=== PATIENT | female | born 1955 | race Caucasian/White ===

== ENCOUNTER 2021-03-24 14:44 | Outpatient (CLI) | payer MEDICARE, OTHER ==
[2021-03-25 11:18] LABS: SARS-CoV-2 PCR by NAA Not Detected (NotDetected)
== END 2021-03-24 14:45 | disposition home or self-care (01) ==
LOC: LABBT 14:44
PROVIDERS: ATTEND Ophthalmology Retina Specialist
DX: Z01.812 Encounter for preprocedural laboratory examination (principal); Z20.822 Contact with and (suspected) exposure to COVID-19
CPT/HCPCS: U0003; U0005

== ENCOUNTER 2021-03-26 05:58 | Day surgery (SDC) | payer MEDICARE, OTHER ==
[2021-03-26] MEDS ORDERED: EPINEPHrine 0.3 MG in Ophthalmic Irrigation Solution 500 ML IRR SCH (06:00)
[2021-03-26] MEDS ORDERED: Phenylephrine 2.5% Ophth Soln 5 ML BOT ONE (06:03)
[2021-03-26] MEDS ORDERED: Cyclopentolate 1% Opth Drop 2 ML BOT ONE (06:03)
[2021-03-26] MEDS ORDERED: Midazolam HCl 2 mg/2 ml Vial ONE (06:22)
[2021-03-26] MEDS ORDERED: PROPOFOL 20 ML ONE (06:22)
[2021-03-26] MEDS ORDERED: Fentanyl 100 MCG/2 ML VIAL ONE (06:22)
[2021-03-26] MEDS ORDERED: CEFAZOLIN 1 GM VIAL ONE (07:08)
[2021-03-26] MEDS ORDERED: Maxitrol 0.1% Opth Oint 3.5 GM TUBE ONE (07:08)
[2021-03-26] MEDS ORDERED: Triamcinolone 40 MG/ML VIAL ONE (07:08)
[2021-03-26] MEDS ORDERED: Lidocaine 1% PF 5 ML VIAL ONE (07:08)
[2021-03-26] MEDS ORDERED: Bupivacaine PF 0.75% SDV 10 ML ONE (07:08)
[2021-03-26] MEDS ORDERED: Lidocaine 4% PF 5 ML AMP ONE (07:08)
== END 2021-03-26 06:35 | disposition home or self-care (01) ==
LOC: SDC 05:58
PROVIDERS: ATTEND Ophthalmology Retina Specialist
PROC: 08T53ZZ Resection of Left Vitreous, Percutaneous Approach (ICD-10-PCS; principal; 2021-03-26)
PROC: 08NF3ZZ Release Left Retina, Percutaneous Approach (ICD-10-PCS; 2021-03-26)
DX: H43.312 Vitreous membranes and strands, left eye (principal); Z79.84 Long term (current) use of oral hypoglycemic drugs; Z79.899 Other long term (current) drug therapy
CPT/HCPCS: J0171; J0690; J2250; J2704; J3010; J3301; J3490

== ENCOUNTER 2021-06-16 08:08 | Day surgery (SDC) | payer MEDICARE, OTHER ==
[2021-06-16] MEDS ORDERED: diphenhydrAMINE 25 MG CAP PO SCH (09:00)
[2021-06-16] MEDS ORDERED: Acetaminophen 500 MG TAB PO SCH (09:00)
[2021-06-16 11:43] VITALS: BP 146/61; TEMP 98.2
== END 2021-06-16 11:49 | disposition home or self-care (01) ==
LOC: ONC/OP 08:08
PROVIDERS: ATTEND Internal Medicine Hematology & Oncology
PROC: 30233N1 Transfusion of Nonautologous Red Blood Cells into Peripheral Vein, Percutaneous Approach (ICD-10-PCS; principal; 2021-06-16)
DX: D64.9 Anemia, unspecified (principal); D69.6 Thrombocytopenia, unspecified; Z88.2 Allergy status to sulfonamides; Z88.7 Allergy status to serum and vaccine
CPT/HCPCS: 36430; 86850; 86900; 86901; P9016

== ENCOUNTER 2021-06-18 09:15 | Outpatient (CLI) | payer MEDICARE, OTHER ==
[2021-06-18 11:19] LABS: Hemoglobin 8.4 g/dL (12.0-15.5); Mean Corpuscular HGB CONC 28.8 g/dL (32.0-36.0); Platelet Count 372 10x3/uL (150-450); RBC Distribution Width 19.9 % (11.5-14.5)
[2021-06-18 11:47] LABS: Anion Gap 14 mmol/L (10-20); BUN (Urea Nitrogen) 17 mg/dL (9.8-20.1); Calc. Creatinine Clearance 0 mL/min (70-130); Calcium 8.5 mg/dL (7.8-10.44); Carbon Dioxide 26 mmol/L (23-31); Chloride 106 mmol/L (98-107); Glucose 111 mg/dL (80-115); Potassium 3.8 mmol/L (3.5-5.1); Sodium 142 mmol/L (136-145)
[2021-06-18 18:16] LABS: SARS-CoV-2 PCR by NAA Not Detected (NotDetected)
== END 2021-06-18 09:16 | disposition home or self-care (01) ==
LOC: LABBT 09:15
PROVIDERS: ATTEND Surgery
DX: Z01.818 Encounter for other preprocedural examination (principal); Z20.822 Contact with and (suspected) exposure to COVID-19
CPT/HCPCS: 80048; 85027; U0003; U0005

== ENCOUNTER 2021-06-18 09:30 | Inpatient (IN) | payer MEDICARE, OTHER ==
[2021-06-22] MEDS ORDERED: cefOXitin Sodium/Dextrose 2 GM/50 ML BAG ONE (09:27)
[2021-06-22] MEDS ORDERED: Scopolamine 1.5 mg/72 hour Patch ONE (13:44)
[2021-06-22] MEDS ORDERED: Midazolam HCl 2 mg/2 ml Vial ONE (13:44)
[2021-06-22] MEDS ORDERED: Lidocaine 1% w/Epinephrine 1:100K 20 ML VIAL ONE (13:54)
[2021-06-22] MEDS ORDERED: Bupivacaine 0.25% 10 ML VIAL ONE (13:54)
[2021-06-22] MEDS ORDERED: Fentanyl 100 MCG/2 ML VIAL ONE ×3 (14:01→20:49)
[2021-06-22] MEDS ORDERED: Promethazine HCl 25 MG/ML VIAL IM PRN (14:10)
[2021-06-22] MEDS ORDERED: Glycopyrrolate 0.2 MG/ML 5 ML SYRINGE ONE (14:10)
[2021-06-22] MEDS ORDERED: hydrALAZINE 20 MG/ML VIAL SLOW IVP PRN (14:10)
[2021-06-22] MEDS ORDERED: Ondansetron PF 4 MG/2 ML Vial IVP PRN (14:10)
[2021-06-22] MEDS ORDERED: Phenylephrine 10 MG/ML VIAL ONE (14:10)
[2021-06-22] MEDS ORDERED: Lidocaine 1% PF 5 ML VIAL ONE (14:10)
[2021-06-22] MEDS ORDERED: Dexamethasone 20 MG/5 ML VIAL ONE (14:10)
[2021-06-22] MEDS ORDERED: Ondansetron PF 4 MG/2 ML Vial ONE (14:10)
[2021-06-22] MEDS ORDERED: ePHEDrine 50 MG/ML VIAL ONE (14:10)
[2021-06-22] MEDS ORDERED: Rocuronium Bromide 10 MG/ML (10ML VIAL) ONE (14:10)
[2021-06-22] MEDS ORDERED: PROPOFOL 200 MG/20 ML VIAL ONE (14:10)
[2021-06-22] MEDS ORDERED: ceFOXitin 1 GM VIAL ONE ×3 (16:02→17:51)
[2021-06-22] MEDS ORDERED: HYDROmorphone 0.5 MG/0.5 ML SYRINGE ONE (16:51)
[2021-06-22] MEDS ORDERED: Aripiprazole 10 MG TAB PO SCH (21:00)
[2021-06-22 22:11] VITALS: BMI 32.1
[2021-06-22] MEDS: D5 1/2 NS w/20 mEq KCL 1,000 ML IV SCH (22:36)
[2021-06-22] MEDS: Famotidine/PF 20 mg/2ml Vial SLOW IVP SCH (22:37)
[2021-06-22] MEDS: Ketorolac Tromethamine 30 MG/ML VIAL IVP SCH (22:37)
[2021-06-22] MEDS: cefOXitin 2 GM in Sodium Chloride 0.9% 100 ML IVPB SCH (22:42)
[2021-06-22] MEDS: busPIRone HCl 5 MG TAB PO SCH (22:45)
[2021-06-22] MEDS: Famotidine 20 MG TAB PO SCH (23:05)
[2021-06-23] MEDS: Ketorolac Tromethamine 30 MG/ML VIAL IVP SCH ×3 (01:37→11:09)
[2021-06-23] MEDS: cefOXitin 2 GM in Sodium Chloride 0.9% 100 ML IVPB SCH (02:38)
[2021-06-23] MEDS: D5 1/2 NS w/20 mEq KCL 1,000 ML IV SCH ×2 (05:20→08:36)
[2021-06-23] MEDS: Morphine 4 MG/ML VIAL SLOW IVP PRN ×2 (06:18→11:09)
[2021-06-23 06:35] LABS: Anion Gap 9 mmol/L (10-20); BUN (Urea Nitrogen) 11 mg/dL (9.8-20.1); Calc. Creatinine Clearance 92 mL/min (70-130); Calcium 7.9 mg/dL (7.8-10.44); Carbon Dioxide 26 mmol/L (23-31); Chloride 108 mmol/L (98-107); Glucose 131 mg/dL (80-115); Potassium 3.4 mmol/L (3.5-5.1); Sodium 140 mmol/L (136-145)
[2021-06-23 06:59] LABS: #Lymphocytes 0.8 thou/uL (1.20-3.40); #Monocytes 0.9 thou/uL (0.11-0.59); #Neutrophils 10.1 thou/uL (1.40-6.50); %Basophils 0.2 % (0.0-1.0); %Eosinophils 0.2 % (0.0-10.0); %Lymphocytes 6.4 % (21.0-51.0); %Monocytes 7.7 % (0.0-10.0); %Neutrophils 85.6 % (42.0-75.0); Anisocytosis SLIGHT = 6-15 cells (100X) (0-5/hpf); Elliptocytes SLIGHT = 2-5 cells (100X) (0-1/hpf); Hypochromia SLIGHT = 6-15 cells (100X) (0-5/hpf); MDiff Complete? YES; Mean Corpuscular HGB CONC 29.7 g/dL (32.0-36.0); Mean Corpuscular Hemoglobin 23.3 pg (27.0-31.0); Mean Corpuscular Volume 78.5 fL (78.0-98.0); Mean Platelet Volume 7.9 fL (7.4-10.4); Microcytosis SLIGHT = 6-15 cells (100X) (0-5/hpf); Platelet Count 228 thou/uL (130-400); RBC Distribution Width 26.7 % (11.5-14.5); Red Blood Cell (RBC) Count 3.87 mill/uL (4.20-5.40); Tear Drops SLIGHT = 2-5 cells (100X) (0-1/hpf); White Blood Cell (WBC) Count 11.8 thou/uL (4.8-10.8)
[2021-06-23] MEDS: busPIRone HCl 5 MG TAB PO SCH (08:32)
[2021-06-23] MEDS: Famotidine 20 MG TAB PO SCH (08:32)
[2021-06-23] MEDS: Famotidine/PF 20 mg/2ml Vial SLOW IVP SCH (08:33)
[2021-06-23] MEDS ORDERED: DULoxetine 60 MG CAP PO SCH (09:00)
[2021-06-23] MEDS ORDERED: Enoxaparin Sodium 40 MG/0.4 ML SYRINGE SC SCH (09:00)
[2021-06-23] MEDS ORDERED: Oxybutynin ER 5 MG TAB PO SCH (09:00)
[2021-06-23] MEDS ORDERED: HYDROcodone/Acetaminophen 7.5/325 mg Tablet PO PRN (14:17)
[2021-06-23 16:02] VITALS: BP 122/70; TEMP 98.2
== END 2021-06-23 18:30 | disposition home or self-care (01) | DRG 330 ==
LOC: SURG A 06-22 08:37 → EDSTATUS 06-22 09:30 → SURG B 06-22 21:58
PROVIDERS: ADMIT Surgery; ATTEND Surgery
PROC: 0DTF0ZZ Resection of Right Large Intestine, Open Approach (ICD-10-PCS; principal; 2021-06-22)
PROC: 8E0W0CZ Robotic Assisted Procedure of Trunk Region, Open Approach (ICD-10-PCS; 2021-06-22)
DX: C18.2 Malignant neoplasm of ascending colon (principal); C78.89 Secondary malignant neoplasm of other digestive organs; I10 Essential (primary) hypertension; J44.9 Chronic obstructive pulmonary disease, unspecified; G89.4 Chronic pain syndrome; F32.A Depression, unspecified; F41.9 Anxiety disorder, unspecified; Z96.641 Presence of right artificial hip joint; D63.0 Anemia in neoplastic disease; M19.90 Unspecified osteoarthritis, unspecified site; E78.00 Pure hypercholesterolemia, unspecified; E11.9 Type 2 diabetes mellitus without complications; M81.0 Age-related osteoporosis without current pathological fracture; Z87.891 Personal history of nicotine dependence; Z79.899 Other long term (current) drug therapy; Z80.3 Family history of malignant neoplasm of breast; Z83.3 Family history of diabetes mellitus; Z82.49 Family history of ischemic heart disease and other diseases of the circulatory system
CPT/HCPCS: 36415; 36416; 80048; 85025; 86850; 86900; 86901; 88309; C1713; J0694; J1100; J1170; J1650; J1885; J2250; J2270; J2370; J2405; J2704; J3010; J3480; J3490; S0020; S0028

== ENCOUNTER 2021-07-20 15:32 | Outpatient (CLI) | payer MEDICARE, OTHER ==
[2021-07-21 11:36] LABS: SARS-CoV-2 PCR by NAA Not Detected (NotDetected)
== END 2021-07-20 15:33 | disposition home or self-care (01) ==
LOC: LABBT 15:32
PROVIDERS: ATTEND Ophthalmology Retina Specialist
DX: Z01.812 Encounter for preprocedural laboratory examination (principal); C18.2 Malignant neoplasm of ascending colon; Z20.822 Contact with and (suspected) exposure to COVID-19
CPT/HCPCS: U0003; U0005

== ENCOUNTER 2021-07-23 05:48 | Day surgery (SDC) | payer MEDICARE, OTHER ==
[2021-07-16 10:24] VITALS: BMI 28.8
[2021-07-23] MEDS ORDERED: Cyclopentolate 1% Opth Drop 2 ML BOT ONE (05:54)
[2021-07-23] MEDS ORDERED: Phenylephrine 2.5% Ophth Soln 5 ML BOT ONE (05:54)
[2021-07-23] MEDS ORDERED: EPINEPHrine 0.3 MG in Ophthalmic Irrigation Solution 500 ML IRR SCH (06:00)
[2021-07-23] MEDS ORDERED: Fentanyl 100 MCG/2 ML VIAL ONE (06:40)
[2021-07-23] MEDS ORDERED: Midazolam HCl 2 mg/2 ml Vial ONE (06:40)
[2021-07-23] MEDS ORDERED: PROPOFOL 0 ML ONE (06:40)
== END 2021-07-23 09:50 | disposition home or self-care (01) ==
LOC: SDC 05:48
PROVIDERS: ATTEND Ophthalmology Retina Specialist
DX: H43.311 Vitreous membranes and strands, right eye (principal); Z53.8 Procedure and treatment not carried out for other reasons; Z79.84 Long term (current) use of oral hypoglycemic drugs; Z79.899 Other long term (current) drug therapy; Z88.2 Allergy status to sulfonamides; Z88.7 Allergy status to serum and vaccine
CPT/HCPCS: J0171; J2250; J2704; J3010

== ENCOUNTER 2021-08-10 13:58 | Outpatient (CLI) | payer MEDICARE, OTHER ==
[2021-08-11 17:56] LABS: SARS-CoV-2 PCR by NAA Not Detected (NotDetected)
== END 2021-08-10 13:59 | disposition home or self-care (01) ==
LOC: LABBT 13:58
PROVIDERS: ATTEND Ophthalmology Retina Specialist
DX: Z01.812 Encounter for preprocedural laboratory examination (principal); H43.311 Vitreous membranes and strands, right eye; Z20.822 Contact with and (suspected) exposure to COVID-19
CPT/HCPCS: U0003; U0005

== ENCOUNTER 2021-08-13 05:50 | Day surgery (SDC) | payer MEDICARE, OTHER ==
[2021-08-04 12:03] VITALS: BMI 28.3
[2021-08-13] MEDS ORDERED: EPINEPHrine 0.3 MG in Ophthalmic Irrigation Solution 500 ML IRR SCH (06:00)
[2021-08-13] MEDS ORDERED: Cyclopentolate 1% Opth Drop 2 ML BOT ONE (06:03)
[2021-08-13] MEDS ORDERED: Phenylephrine 2.5% Ophth Soln 5 ML BOT ONE (06:03)
[2021-08-13] MEDS ORDERED: Midazolam HCl 2 mg/2 ml Vial ONE (06:24)
[2021-08-13] MEDS ORDERED: Fentanyl 100 MCG/2 ML VIAL ONE (06:24)
[2021-08-13] MEDS ORDERED: CEFAZOLIN 1 GM VIAL ONE (07:03)
[2021-08-13] MEDS ORDERED: Lidocaine 4% PF 5 ML AMP ONE (07:03)
[2021-08-13] MEDS ORDERED: Bupivacaine PF 0.75% SDV 10 ML ONE (07:03)
[2021-08-13] MEDS ORDERED: Lidocaine 1% PF 5 ML VIAL ONE (07:03)
[2021-08-13] MEDS ORDERED: PROPOFOL 200 MG/20 ML VIAL ONE (07:03)
[2021-08-13] MEDS ORDERED: Triamcinolone 40 MG/ML VIAL ONE (07:03)
[2021-08-13] MEDS ORDERED: Maxitrol 0.1% Opth Oint 3.5 GM TUBE ONE (07:03)
== END 2021-08-13 08:45 | disposition home or self-care (01) ==
LOC: SDC 05:50
PROVIDERS: ATTEND Ophthalmology Retina Specialist
PROC: 08T43ZZ Resection of Right Vitreous, Percutaneous Approach (ICD-10-PCS; principal; 2021-08-13)
PROC: 08NE3ZZ Release Right Retina, Percutaneous Approach (ICD-10-PCS; 2021-08-13)
DX: H43.311 Vitreous membranes and strands, right eye (principal); Z79.84 Long term (current) use of oral hypoglycemic drugs; Z79.899 Other long term (current) drug therapy; Z88.2 Allergy status to sulfonamides; Z88.7 Allergy status to serum and vaccine
CPT/HCPCS: J0171; J0690; J2250; J2704; J3010; J3301; J3490

== ENCOUNTER 2024-05-22 20:23 | Inpatient (IN) | payer MEDICARE ==
[2024-05-22 23:12] VITALS: BMI 28.6
[2024-05-23] MEDS ORDERED: Insulin Lispro 100 UNIT/ML 10 ML VIAL SC PRN ×2 (00:35)
[2024-05-23] MEDS ORDERED: Dextrose 5% in Water 1,000 ML IV PRN (00:35)
[2024-05-23] MEDS ORDERED: Dextrose 50% Abboject 50 ML SYRINGE SLOW IVP PRN (00:35)
[2024-05-23] MEDS ORDERED: Glucagon 1 MG/ML KIT IM PRN (00:35)
[2024-05-23] MEDS: Potassium Chloride 20 MEQ TAB PO SCH ×2 (01:11→08:01)
[2024-05-23 05:19] LABS: #Basophils 0.06 10x3/uL (0.0-0.2); %Basophils 0.8 % (0.0-1.0); %Eosinophils 2.2 % (0.0-10.0); %Lymphocytes 30.9 % (21.0-51.0); %Monocytes 8.9 % (0.0-10.0); %Neutrophils 56.7 % (42.0-75.0); Hematocrit 37.5 % (36.0-47.0); Hemoglobin 12.7 g/dL (12.0-16.0); Mean Corpuscular HGB CONC 33.9 g/dL (32.0-36.0); Mean Corpuscular Volume 88.4 fL (78.0-98.0); Platelet Count 239 10x3/uL (130-400); RBC Distribution Width 13.9 % (11.5-14.5); Red Blood Cell (RBC) Count 4.24 mill/uL (4.20-5.40)
[2024-05-23 05:32] LABS: Anion Gap 12 mmol/L (10-20); BUN (Urea Nitrogen) 27 mg/dL (9.8-20.1); Calc. Creatinine Clearance 52 mL/min (70-130); Calcium 9.2 mg/dL (7.8-10.44); Carbon Dioxide 28 mmol/L (23-31); Chloride 100 mmol/L (98-107); Estimated GFR 42; Glucose 131 mg/dL (80-115); Magnesium 1.9 mg/dL (1.6-2.6); Sodium 137 mmol/L (136-145)
[2024-05-23] MEDS ORDERED: metFORMIN 500 MG TAB PO SCH (08:00)
[2024-05-23] MEDS: DULoxetine 60 MG CAP PO SCH (08:01)
[2024-05-23 09:45] VITALS: BMI 28.6
[2024-05-23] MEDS: Lisinopril 20 MG TAB PO SCH (10:08)
[2024-05-23] MEDS: DULoxetine 30 MG CAP PO SCH ×2 (10:08→20:33)
[2024-05-23] MEDS: Lactated Ringer's 1,000 ML IV SCH (12:11)
[2024-05-23] MEDS: Atorvastatin Calcium 10 MG TAB PO SCH (20:16)
[2024-05-23] MEDS ORDERED: DULoxetine 60 MG CAP PO SCH (21:00)
[2024-05-24 04:50] LABS: #Basophils 0.06 10x3/uL (0.0-0.2); %Basophils 0.8 % (0.0-1.0); %Eosinophils 2.4 % (0.0-10.0); %Lymphocytes 24.5 % (21.0-51.0); %Monocytes 7.2 % (0.0-10.0); %Neutrophils 64.8 % (42.0-75.0); Hemoglobin 12.1 g/dL (12.0-16.0); Mean Corpuscular HGB CONC 33.6 g/dL (32.0-36.0); Mean Corpuscular Volume 89.1 fL (78.0-98.0); Mean Platelet Volume 8.8 fL (7.4-10.4); Platelet Count 201 10x3/uL (130-400); RBC Distribution Width 13.5 % (11.5-14.5); Red Blood Cell (RBC) Count 4.04 mill/uL (4.20-5.40)
[2024-05-24 05:11] LABS: Anion Gap 13 mmol/L (10-20); BUN (Urea Nitrogen) 16 mg/dL (9.8-20.1); Calc. Creatinine Clearance 83 mL/min (70-130); Calcium 8.8 mg/dL (7.8-10.44); Chloride 106 mmol/L (98-107); Estimated GFR 75; Glucose 141 mg/dL (80-115); Potassium 4.2 mmol/L (3.5-5.1); Sodium 141 mmol/L (136-145)
[2024-05-24 05:30] LABS: Carbon Dioxide 26 mmol/L (23-31)
[2024-05-24] MEDS: DULoxetine 60 MG CAP PO SCH (10:07)
[2024-05-24 12:09] VITALS: BP 125/75
[2024-05-24 12:20] VITALS: TEMP 98.1
== END 2024-05-24 13:18 | disposition home or self-care (01) | DRG 312 ==
LOC: OBS 22:55 → OBSVTOIN 05-23 14:45
PROVIDERS: ADMIT Student in an Organized Health Care Education/Training Program; ATTEND Student in an Organized Health Care Education/Training Program
DX: R55 Syncope and collapse (principal); N17.9 Acute kidney failure, unspecified; N18.4 Chronic kidney disease, stage 4 (severe); E78.5 Hyperlipidemia, unspecified; Z96.641 Presence of right artificial hip joint; I12.9 Hypertensive chronic kidney disease with stage 1 through stage 4 chronic kidney disease, or unspecified chronic kidney disease; E11.22 Type 2 diabetes mellitus with diabetic chronic kidney disease; E87.6 Hypokalemia; F32.A Depression, unspecified; G89.29 Other chronic pain; Z66 Do not resuscitate; Z79.899 Other long term (current) drug therapy; Z98.51 Tubal ligation status; Z85.038 Personal history of other malignant neoplasm of large intestine; Z98.891 History of uterine scar from previous surgery; Z90.710 Acquired absence of both cervix and uterus; Z88.2 Allergy status to sulfonamides; Z88.7 Allergy status to serum and vaccine; Z79.84 Long term (current) use of oral hypoglycemic drugs
CPT/HCPCS: 36415; 36416; 80048; 83735; 85025; 93306; G0378